=== PATIENT | female | born 1965 | race Caucasian/White ===

== ENCOUNTER 2016-07-15 13:55 | Emergency (ER) | payer OTHER ==
[~2016-07-15] VITALS: Wt 93.6 kg
[2016-07-15 13:59] VITALS: Wt 93.6 kg
[2016-07-15] MEDS ORDERED: KETOROLAC 30 MG INJ IM STA (15:49)
--- NOTE | 2016-07-15 16:04 | ERD ---
ER Documentation Chief Complaint Date/Time DATE: 07/15/16 TIME: 16:01 Chief Complaint LEFT ANKLE PAIN NO RECENT FALL. NEEDS XRAYS HPI This patient is a 51-year-old female with history of multiple surgeries on her left ankle presenting to the emergency department for swollen and painful left ankle for the past 2 years, worsening over the past 2 months. Patient rates her pain a 6 out of 10 on the pain scale. Pain is exacerbated by walking. The patient is taken ibuprofen at home with no relief of her symptoms. Patient denies any fall, trauma, other injuries, fever, chills, or other symptoms at this time. ROS All systems reviewed and are negative except as per history of present illness. PMhx/Soc History of Surgery: Yes (LEFT ANKLE SX X 3) Anesthesia Reaction: No Hx Neurological Disorder: No Hx Respiratory Disorders: No Hx Cardiac Disorders: No Hx Psychiatric Problems: No Hx Miscellaneous Medical Probl: Yes (OBESE) Hx Alcohol Use: No Hx Substance Use: No Hx Tobacco Use: No Smoking Status: Never smoker Physical Exam Vitals Vital Signs Date Time Temp Pulse Resp B/P Pulse Ox O2 Delivery O2 Flow Rate FiO2 07/15/16 13:59 97.8 86 20 130/75 98 Physical Exam INITIAL VITAL SIGNS: Reviewed by me. GENERAL: Alert and interactive. No acute distress. HEAD: Head is normocephalic and atraumatic. EYES: EOMI. No scleral icterus. No conjunctival injection. ENT: Moist mucosa. NECK: Supple. Full range of motion. RESPIRATORY: Normal respiratory effort. Clear breath sounds bilaterally. No wheezing, rales, or rhonchi. CV: Regular rate and rhythm. Normal S1 S2. No S3 or S4. No murmurs. ABDOMEN: Soft, non-distended, non-tender. No guarding. No rebound. No masses. EXTREMITIES: There is tenderness to palpation and edema of the lateral malleolus of the left ankle. There is slightly decreased range of motion secondary to pain. There is no ecchymosis or obvious deformity. SKIN: Warm and dry. NEUROLOGIC: Alert and oriented x 4. Speech is normal. Moves all extremities equally. No motor or sensory deficits noted. Results 24 hrs Current Medications Medications (Trade) Dose Ordered Sig/Caridad Route PRN Reason Start Time Stop Time Status Last Admin Dose Admin Ketorolac Tromethamine (Toradol) 30 mg ONCE STAT IM 07/15/16 15:49 07/15/16 15:51 DC 07/15/16 16:28 Procedures/MDM EMERGENCY DEPARTMENT COURSE / MEDICAL DECISION MAKING: This is a 51-year-old female who comes to the emergency room secondary to complaints of left ankle pain. The patient was given 30 mg IM Toradol in the department. On re-evaluation, the patient was feeling improved. Radiology: 3 views of the left ankle interpreted by radiologist: PROCEDURE: XR Ankle. CLINICAL INDICATION: Pain TECHNIQUE: Three views of the left ankle were performed. COMPARISON: None. FINDINGS: There is a healed post fracture deformity of the distal fibula with suggestion of prior screw tracks from previous hardware. There is decreased bone mineral density in this region representing post fracture deformity, although ongoing stress reaction in this region cannot be excluded. There are mild degenerative changes of the tibiotalar joint with marginal productive change at the medial malleolus, likely sequelae of prior ligament injury. An os trigonum is present. Enthesopathic changes seen at the plantar calcaneal margin. Soft tissue swelling is noted about the ankle. IMPRESSION: 1. Healed post fracture deformity of the distal fibula with mild lucency in this region. If acute on chronic injury suspected, consider MRI for better evaluation. 2. Mild degenerative and post-traumatic changes of the tibiotalar joint. 3. Soft tissue swelling about the ankle. The primary diagnosis is ankle pain. Secondary diagnosis is ankle strain I have low suspicion for septic joint, fracture, other emergencies at this time. Discharge: I have discussed the lab results and diagnostic findings with the patient and answered any questions or concerns. The patient was discharged with a prescription for naproxen. The patient was advised to followup with their PMD in 1-2 days and to return to the Emergency Department if there are any new or worsening symptoms. The patient understood and agreed with the diagnosis, treatment and plan. The patient is stable for discharge at this time. Departure Diagnosis: Primary Impression: Ankle pain Additional Impression: Ankle strain Condition: Stable Additional Instructions: Follow-up with your primary care physician within 1 week. Return to the emergency department immediately should you have any new or worsening symptoms, uncontrolled fevers, or other unexplained symptoms. Take all medications as directed. KENNEY BOX PA-C Jul 15, 2016 16:04
--- NOTE | 2016-07-15 16:28 | RADRPT ---
PROCEDURE: XR Ankle. CLINICAL INDICATION: Pain TECHNIQUE: Three views of the left ankle were performed. COMPARISON: None. FINDINGS: There is a healed post fracture deformity of the distal fibula with suggestion of prior screw tracks from previous hardware. There is decreased bone mineral density in this region representing post f racture deformity, although ongoing stress reaction in this region cannot be excluded. There are mi ld degenerative changes of the tibiotalar joint with marginal productive change at the medial malleo rebekah, likely sequelae of prior ligament injury. An os trigonum is present. Enthesopathic changes se en at the plantar calcaneal margin. Soft tissue swelling is noted about the ankle. IMPRESSION: 1. Healed post fracture deformity of the distal fibula with mild lucency in this region. If acute on chronic injury suspected, consider MRI for better evaluation. 2. Mild degenerative and post-traumatic changes of the tibiotalar joint. 3. Soft tissue swelling about the ankle. RPTAT: TT .Frankie Brennan MD, MD Date Time Electronically viewed and signed by .Frankie Brennan MD, on 07/15/2016 16:28 .d/
== END 2016-07-15 17:31 | disposition home or self-care (01) ==
LOC: FTE 13:55
DX: S96.912A Strain of unspecified muscle and tendon at ankle and foot level, left foot, initial encounter (principal); E66.9 Obesity, unspecified; X58.XXXA Exposure to other specified factors, initial encounter; Y92.9 Unspecified place or not applicable
CPT/HCPCS: 73610; 96372; J1885; Z7502